=== PATIENT | male | born 1955 | race Caucasian/White ===

== ENCOUNTER 2019-05-28 10:27 | Emergency (ER) | payer OTHER ==
[2019-05-28 10:44] VITALS: BP 111/66
--- NOTE | 2019-05-28 10:48 | UC ---
Ear Complaint HPI - HPI Summary HPI Summary: 63 year old male with PMH + for DM II presents with left ear pain. He was seen nicholas coreas'tamela with A[facility], started on amoxicillin. patient staeta ear pain continued until~ weds night, thurs AM when he noted drainage from his left ear, watery/ clear. He denies neck pain, CHANG, sinus congestion, fever, chills, body aches, cough/ SOB. L ear pain mildly improved, but still using motrin every 6 hours. + decreased hearing, ringing in L ear - History of Current Complaint Chief Complaint: UCEar Stated Complaint: RIGHT EAR PAIN Time Seen by Provider: 05/28/19 10:47 Hx Obtained From: Patient Onset/Duration: Sudden Onset, Lasting Days, Still Present Severity Initially: Mild Severity Currently: Mild Pain Intensity: 1 Pain Scale Used: 0-10 Numeric Alleviating Factors: OTC Meds Associated Signs/Symptoms: Positive: Discharge, Hearing Loss - Allergies/Home Medications Allergies/Adverse Reactions: Allergies Allergy/AdvReac Type Severity Reaction Status Date / Time codeine Allergy See Comment Verified 05/28/19 10:43 PMH/Surg Hx/FS Hx/Imm Hx Previously Healthy: Yes Endocrine History: Diabetes - Surgical History Surgical History: Yes Surgery Procedure, Year, and Place: Ablation of area of throat 2008, 2012 - Family History Known Family History: Positive: Non-Contributory - Social History Alcohol Use: Occasionally Substance Use Type: None Smoking Status (MU): Never Smoked Tobacco Review of Systems All Other Systems Reviewed And Are Negative: Yes Constitutional: Positive: Negative Skin: Negative: Rash Eyes: Negative: Blurred Vision, Drainage ENT: Positive: Ear Ache. Negative: Epistaxis, Dental Pain, Sore Throat, Nasal Discharge, Sinus Congestion, Sinus Pain/Tenderness Respiratory: Negative: Shortness Of Breath, Cough Cardiovascular: Negative: Chest Pain Genitourinary: Negative: Dysuria Neurological: Negative: Headache Is Patient Immunocompromised?: No Physical Exam Triage Information Reviewed: Yes Appearance: Well-Appearing, No Pain Distress, Well-Nourished Vital Signs: Initial Vital Signs Temp 97.5 F 05/28/19 10:39 Pulse 88 05/28/19 10:39 Resp 18 05/28/19 10:39 BP 111/66 05/28/19 10:39 Pulse Ox 98 05/28/19 10:39 Vital Signs Reviewed: Yes Eyes: Positive: Conjunctiva Clear ENT: Positive: Pharynx normal, TMs normal - right, TM bulging - LEft- possible rupture at 3 oclock position, no purulent material noted, normal auditory canal. + yellow material behind TM, minimal erythema noted around TM,, TM dull - LEft, TM red - LEft Neck: Positive: Supple, Nontender, No Lymphadenopathy - No LAD, no tenderness Neurological Exam: Normal Psychological Exam: Normal Skin Exam: Normal Ear Complaint Course/Dx - Course Course Of Treatment: Otitis Media with TM rupture - Topical ear drops twice daily x 7 days - Change antibiotic to Augmentin for broader coverage, stop amoxicillin - Make appointment with Dr. Warren for follow up this week, sooner if symptoms worsen. - Alternate Motrin and Tylenol for pain control - Increase fluid intake while taking motrin - Avoid water into ear, no swimming, submerging, do not get wet in shower - Go to ER with neck pain, painful chewing, fever > 102, headache, bleeding - Differential Dx/Diagnosis Differential Diagnosis/HQI/PQRI: Otitis Media, Perforated TM Provider Diagnosis: AOM (acute otitis media), Otitis media, purulent, acute, with spontaneous rupture of TM Discharge ED - Sign-Out/Discharge Documenting (check all that apply): Patient Departure All imaging exams completed and their final reports reviewed: No Studies - Discharge Plan Condition: Good Disposition: HOME Prescriptions: Amoxicillin/Clavulanate TAB* [Augmentin TAB 875*] 875 mg PO BID #14 tab Ciproflox/Dexameth OTIC.SUSP* [Ciprodex OTIC.SUSP*] 1 drop OTIC BID #1 btl Ciprofloxacin HCl [Ciprofloxacin 0.2% EAR DROPS] 1 drop OTIC BID #1 droperette Patient Education Materials: Ruptured Eardrum (ED), Ear Infection (ED) Referrals: Mario Warren MD [Medical Doctor] - (3-5 days ) Emerson Gutierrez MD [Primary Care Provider] - Additional Instructions: Otitis Media with TM rupture - Topical ear drops twice daily x 7 days - Change antibiotic to Augmentin for broader coverage, stop amoxicillin - Make appointment with Dr. Warren for follow up this week, sooner if symptoms worsen. - Alternate Motrin and Tylenol for pain control - Increase fluid intake while taking motrin - Avoid water into ear, no swimming, submerging, do not get wet in shower - Go to ER with neck pain, painful chewing, fever > 102, headache, bleeding - Billing Disposition and Condition Condition: GOOD Disposition: Home - Attestation Statements Provider Attestation: Per institutional requirements, I have reviewed the chart, however, I was not consulted specifically or made aware of this patient by the midlevel provider. I did not personally evaluate, interact with , or disposition this patient.
== END 2019-05-28 11:23 | disposition home or self-care (01) ==
LOC: UCEAST 10:27
DX: H66.92 Otitis media, unspecified, left ear (principal); H72.92 Unspecified perforation of tympanic membrane, left ear; E11.9 Type 2 diabetes mellitus without complications; Z88.5 Allergy status to narcotic agent
CPT/HCPCS: 99212; G0463

== ENCOUNTER 2022-10-12 09:55 | Inpatient (IN) ==
[2022-10-12] MEDS ORDERED: Heparin - STEMI 5,000 UNITS/ML 1 ml VIAL IV ONE (10:09)
[2022-10-12 10:21] LABS: ABS Eosinophils 0.1 10^3/ul (0-0.6); ABS Lymphocytes 1.1 10^3/ul (1.0-4.8); ABS Monocytes 0.5 10^3/ul (0-0.8); ABS Neutrophils 5.8 10^3/ul (1.5-7.7); Eosinophil % 0.7 %; Hematocrit 49 % (42-52); Hemoglobin 16.7 g/dL (14.0-18.0); Lymphocyte % 14.8 %; Mean Corpuscular HGB Conc 34 g/dL (31-36); Mean Corpuscular Hemoglobin 31 pg (27-31); Mean Corpuscular Volume 91 fL (80-94); Mean Platelet Volume 7.5 fL (7.4-10.4); Nucleated Red Blood Cells % 0.2; Platelet Count 215 10^3/uL (150-450); Red Blood Count 5.36 10^6 /uL (4.18-5.48); Red Cell Distribution Width 13 % (10-15); White Blood Count 7.5 10^3/uL (3.5-10.8)
[2022-10-12] MEDS ORDERED: Prasugrel 10 mg TAB (NF) ONE (10:23)
[2022-10-12] MEDS ORDERED: niCARdipine 0.1MG/ML IVPREMIX 20 MG/200 ML BAG IV ONE (10:24)
[2022-10-12] MEDS ORDERED: fentaNYL 100 mcg/2 ml 50 MCG/ML VIAL ONE (10:24)
[2022-10-12] MEDS ORDERED: Midazolam 5 mg/5 ml VIAL 1 mg/ml 5 ml VIAL (5 mg) ONE (10:24)
[2022-10-12 10:29] LABS: Activated Partial Thrombo Time 57.8 seconds (26.0-38.0); INR 1.01 (0.88-1.18)
[2022-10-12] MEDS ORDERED: Heparin 2 UNITS/ML 1000 mls 1,000 ML IV ONE (10:30)
[2022-10-12] MEDS ORDERED: Atropine 0.1 MG/ML 10 ml SYR (1 mg) ONE (10:44)
[2022-10-12] MEDS ORDERED: Norepinephrine 16MCG/ML BAG NS 0 MCG/0 ML BAG IV ONE (10:46)
[2022-10-12] MEDS ORDERED: Heparin 1,000 UNIT/ML 10 ml (10,000 UNITS) CATHLAB/DIALYSIS ONE ×2 (10:51→11:41)
[2022-10-12 11:05] LABS: Albumin 4.7 g/dL (3.2-5.2); Albumin/Globulin Ratio 1.9 (1-3); Calcium 9.2 mg/dL (8.6-10.3); Creatinine, Serum 0.96 mg/dL (0.67-1.17); Globulin 2.5 g/dL (2-4); Magnesium 1.9 mg/dL (1.9-2.7); Potassium 4.3 mmol/L (3.5-5.0); Total Bilirubin 0.7 mg/dL (0.2-1.0); Total Protein 7.2 g/dL (6.4-8.9); eGFR CKD-EPI 87.2 (>60)
[2022-10-12] MEDS ORDERED: Ondansetron 4 mg VIAL 2 MG/ML 2 ml VIAL IV PRN (11:29)
[2022-10-12] MEDS ORDERED: Heparin 2 UNITS/ML 1000 mls 2,000 ML IV ONE (11:41)
[2022-10-12] MEDS ORDERED: Iohexol 350 (CONTRAST) 100 ML PAK IV ONE (11:41)
[2022-10-12] MEDS ORDERED: Lidocaine 1% MPF 5 ML VIAL ONE (11:41)
[2022-10-12] MEDS ORDERED: nitroGLYCERIN DRIP 25,000 MCG/250 ML BTL ONE (11:41)
[2022-10-12] MEDS ORDERED: Calcium Carb (TUMS) 500 mg CHEW TAB PO PRN (17:59)
[2022-10-12] MEDS ORDERED: Magnesium Sulfate 2 gm BAG 2 GM/50 ML BAG IVPB ONE (18:00)
[2022-10-13] MEDS ORDERED: Lactated Ringers 1000 ml BAG 1,000 ML IV ONE (00:06)
[2022-10-13 04:33] LABS: ABS Eosinophils 0.2 10^3/ul (0-0.6); ABS Lymphocytes 1.6 10^3/ul (1.0-4.8); ABS Monocytes 0.7 10^3/ul (0-0.8); ABS Neutrophils 4.5 10^3/ul (1.5-7.7); Eosinophil % 2.6 %; Hematocrit 42 % (42-52); Hemoglobin 14.2 g/dL (14.0-18.0); Lymphocyte % 22.9 %; Mean Corpuscular HGB Conc 34 g/dL (31-36); Mean Corpuscular Hemoglobin 31 pg (27-31); Mean Corpuscular Volume 90 fL (80-94); Mean Platelet Volume 7.6 fL (7.4-10.4); Platelet Count 179 10^3/uL (150-450); Red Blood Count 4.63 10^6 /uL (4.18-5.48); Red Cell Distribution Width 13 % (10-15)
[2022-10-13 04:52] LABS: Albumin 3.7 g/dL (3.2-5.2); Albumin/Globulin Ratio 1.9 (1-3); Calcium 8.2 mg/dL (8.6-10.3); Creatinine, Serum 0.87 mg/dL (0.67-1.17); Globulin 1.9 g/dL (2-4); Magnesium 2.3 mg/dL (1.9-2.7); Phosphorus 3.5 mg/dL (2.5-5.0); Total Bilirubin 0.8 mg/dL (0.2-1.0); Total Protein 5.6 g/dL (6.4-8.9); eGFR CKD-EPI 95.2 (>60)
[2022-10-13] MEDS ORDERED: Sulfur Hexaflouride MICROSPHR 25 MG VIAL ONE (08:18)
[2022-10-13] MEDS: CMCS:Prasugrel 10 mg TAB (NF) PO SCH (08:28)
[2022-10-13] MEDS: Empagliflozin 25 MG TAB PO SCH (08:28)
[2022-10-14 07:00] LABS: Albumin 3.7 g/dL (3.2-5.2); Albumin/Globulin Ratio 1.9 (1-3); Calcium 8.2 mg/dL (8.6-10.3); Creatinine, Serum 0.94 mg/dL (0.67-1.17); Magnesium 2.2 mg/dL (1.9-2.7); Total Protein 5.7 g/dL (6.4-8.9); eGFR CKD-EPI 89.4 (>60)
[2022-10-14] MEDS: Empagliflozin 25 MG TAB PO SCH ×2 (08:06→08:32)
[2022-10-14] MEDS: CMCS:Prasugrel 10 mg TAB (NF) PO SCH ×2 (08:06→08:31)
[2022-10-14 12:24] VITALS: BP 100/57
[2022-10-14 15:01] LABS: Urine Appearance Clear; Urine Bilirubin Negative (Negative); Urine Blood Negative (Negative); Urine Color Yellow; Urine Glucose 3+(>=500 mg/dL) (Negative); Urine Ketones Negative (Negative); Urine Nitrite Negative (Negative); Urine Protein Negative (Negative); Urine Specific Gravity 1.033 (1.002-1.030); Urine Urobilinogen Positive (Negative)
== END 2022-10-14 14:30 | disposition home or self-care (01) | DRG 247 ==
LOC: ED 09:55 → CHICATH 10:20 → ICU 11:46 → SUATTDRO 11:46 → MEDTELE 10-13 20:20
PROVIDERS: ADMIT Internal Medicine; ATTEND Internal Medicine